=== PATIENT | male | born 1960 | race Caucasian/White ===

== ENCOUNTER 2017-06-19 13:37 | Emergency (ER) | payer OTHER ==
[~2017-06-19] VITALS: Ht 182.9 cm; Wt 77.1 kg
--- NOTE | 2017-06-19 13:53 | Emergency Room Report ---
History of Present Illness General Chief Complaint: Lower Extremity Injury Source: Patient Present Illness HPI 56 yo male patient presents to ER BIB ambulance from [facility] complaining of right knee pain. Reports fell on knee when right foot "got stuck on ground." Reports pain with standing. Denies hitting head, LOC or dizziness. Reports chronic knee pain, denies hx of surgery on right knee. Denies calf pain. Reports abrasion on anterior of knee, covered with Band-Aid. Reports hx of chronic leg swelling. Denies chest pain, SOB, fever. Allergies: Coded Allergies: No Known Allergies (Unverified , 06/19/17) Patient History Past Medical History: see triage record Reviewed Nursing Documentation: PMH: Agreed; PSxH: Agreed Nursing Documentation-PMH Hx Hypertension: Yes Review of Systems All Other Systems: negative except mentioned in HPI Physical Exam Vital Signs Date Time Temp Pulse Resp B/P (MAP) Pulse Ox O2 Delivery O2 Flow Rate FiO2 06/19/17 13:32 97.2 63 14 163/79 97 Room Air 97.2 Sp02 EP Interpretation: reviewed, normal General Appearance: well appearing, no apparent distress, alert, GCS 15, non- toxic Head: normocephalic, atraumatic Eyes: bilateral eye normal inspection, bilateral eye PERRL Neck: full range of motion Respiratory: lungs clear, normal breath sounds, no rhonchi, no respiratory distress, no accessory muscle use, no wheezing, speaking full sentences Cardiovascular #1: regular rate, rhythm, edema - lower leg edema bilaterally Musculoskeletal: back normal, digits/nails normal, gait/station normal, normal range of motion, no calf tenderness, Klaus's Sign negative, other - NVI, no laxity with varus or valgus stress, negative Kj, no deformity, tender - inferior and lateral to patella Neurologic: alert, oriented x3, responsive, motor strength/tone normal, sensory intact Psychiatric: mood/affect normal Skin: other - lower leg dermatitis bilaterally, abrasions - anterior inferior to right knee Medical Decision Making PA Attestation Dr. Deutsch is my supervising Physician whom patient management has been discussed with. Diagnostic Impression: Primary Impression: Right knee pain Additional Impression: Abrasion ER Course Pt. presents to the ED c/o right knee pain. Ddx considered but are not limited to fracture, sprain, strain, contusion, dislocation. No erythema, no warmth to touch, no fever, nontoxic appearing, low suspicion for septic joint. Vital signs: are WNL, pt. is afebrile Ordered X-ray and pain medication. ER COURSE An X-ray of the right knee was ordered, results show no acute disease, per the official reading. Abrasion cleaned and dressed in ER with sterile gauze and Bacitracin. Keep dressing clean and dry. DALI wrap was applied to the right knee was checked afterwards by me showing good alignment and support with distal neurovascular functioning intact. Crutches provided. Patient instructed on RICE method: rest, ice, compression, elevation. Patient instructed to WBAT. Patient reports he will be taken home by person from his [facility]. Followup with primary care provider for regarding bilateral lower leg edema. Patient reports currently being seen and evaluated for edema. Will followup with physician for treatment and management. DISCHARGE: -Rx provided for Tylenol for pain symptoms. -Rx provided for Bacitracin for abrasion on knee At this time pt. is stable for d/c to home. Patient is resting comfortably, in no acute distress, nontoxic appearing, talking without difficulty. Will provide printed patient care instructions, and any necessary prescriptions. Patient instructed to follow with primary care provider in 3 - 5 days and to request further orthopedic follow-up. Care plan and follow up instructions have been discussed with the patient prior to discharge. Take medications as directed. Patient questions asked and answered. Patient reports understanding and agreement to treatment plan. ER precautions given, patient instructed to return to ER immediately for any new or worsening of symptoms. Other X-Ray Diagnostic Results Other X-Ray Diagnostic Results : X-Ray ordered: right knee # of Views/Limited Vs Complete: 3 View Indication: Pain EP Interpretation: Yes PA Xray: Interpretation reviewed, by supervising MD, and agrees with findings. Interpretation: no dislocation, no soft tissue swelling, no fractures, other - Osteoarthritic changes of the knee more prominent in the lateral compartment Impression: No acute disease HERACLIO Scribe Text Bhanu Kumar PA-C Last Vital Signs Date Time Temp Pulse Resp B/P (MAP) Pulse Ox O2 Delivery O2 Flow Rate FiO2 06/19/17 13:32 97.2 63 14 163/79 97 Room Air 97.2 Disposition: HOME, SELF-CARE Condition: Stable Scripts Bacitracin/Polymyxin B Sulfate (BACITRACIN-POLYMYXIN OINTMENT) 28.35 Gm Oint...g. 1 APPLIC TP BID for 7 Days, GM Prov: Andrés Kumar 06/19/17 Acetaminophen* (TYLENOL EXTRA STRENGTH*) 500 Mg Tablet 500 MG ORAL Q8H PRN for Prn Headache/Temp > 101, #30 TAB 0 Refills Prov: Andrés Kumar 06/19/17 Patient Instructions: Abrasion, [id number], Knee Pain, [id number] Additional Instructions: Patient instructed to follow up with primary care provider and discuss further referral to orthopedics. Patient instructed on RICE method: rest, ice, compression, elevation. Patient instructed to WBAT. Take medications as directed. Patient questions asked and answered. ER precautions given, patient instructed to return to ER immediately for any new or worsening of symptoms. Andrés Kumar Jun 19, 2017 13:53
[2017-06-19] MEDS ORDERED: Bacitracin Oint UD TOPIC ONE (14:00)
[2017-06-19] MEDS ORDERED: BACITRACIN-P28.35 GM TP (15:05)
[2017-06-19] MEDS ORDERED: TYLENOL EXTRA500 MG ORAL (15:05)
[2017-06-19 15:14] VITALS: BP 163/79
--- NOTE | 2017-06-20 11:48 | Diagnostic Imaging Report ---
Indication: Pain Knee pain/trauma 3 views of the right knee were obtained. Findings: Osteophytes and joint space narrowing demonstrated especially in the lateral compartment of the knee. No definite fracture seen. IMPRESSION: Moderate arthrosis
== END 2017-06-19 15:39 | disposition home or self-care (01) ==
LOC: EDBD 13:37 → EMR 13:50
DX: S80.211A Abrasion, right knee, initial encounter (principal); W19.XXXA Unspecified fall, initial encounter; Y92.89 Other specified places as the place of occurrence of the external cause; I10 Essential (primary) hypertension; M17.11 Unilateral primary osteoarthritis, right knee
CPT/HCPCS: 99284